=== PATIENT | female | born 1995 | race Two or more races ===

== ENCOUNTER 2019-04-15 15:31 | Emergency (ER) | payer OTHER ==
[2019-04-15 15:49] VITALS: BP 106/69
--- NOTE | 2019-04-16 14:08 | ED ---
Allergic Reaction/Systemic - HPI Summary HPI Summary: This pt is a 24yo F presenting to the ED with feeling dizzy approximately 1 hour [employer]. Pt states she had a brief cough last night, was seen at [facility] and was given mucinex. She also took benadryl following the mucinex. Following this medication, the patient states she felt very dizzy while walking. This was brief, lasting approximately 2-3 minutes and spontaneously improved. She states she has never taken this medication before and thought she was having an allergic reaction. Denies any symptoms currently. Denies visual changes, chest pain, SOB, throat pain, difficulty swallowing or breathing , rashes, CALL, palpitations, abd pain. Denies fevers or current illness. States she feels well at this time. - History of Current Complaint Chief Complaint: EDDizziness Time Seen by Provider: 04/15/19 16:00 Hx Obtained From: Patient, EMS Onset/Duration: Sudden Onset Timing: Constant, Lasting Minutes Severity Initially: Mild Severity Currently: None Pain Intensity: 0 Pain Scale Used: 0-10 Numeric Associated Signs And Symptoms: Positive: Other: - dizziness. Negative: Abdominal Pain, Chest Pain, Cough Wheezing, Diaphoresis, Difficulty Breathing, Hoarseness, Lightheadedness, Nausea, Rash, Syncope, Throat Tightening, Vomiting - Related Hx Possible Reaction To: Medications PMH/Surg Hx/FS Hx/Imm Hx Previously Healthy: Yes - Immunization History Hx Pertussis Vaccination: No Immunizations Up to Date: Yes Infectious Disease History: No Infectious Disease History: Denies: Traveled Outside the [place] in Last 30 Days - Social History Occupation: Unemployed, Student Lives: Dormitory/Roommates Alcohol Use: None Hx Substance Use: No Substance Use Type: Reports: None Hx Tobacco Use: No Smoking Status (MU): Never Smoked Tobacco Review of Systems Negative: Fever, Chills, Fatigue, Skin Diaphoresis Negative: Palpitations, Chest Pain Negative: Shortness Of Breath, Cough Negative: Abdominal Pain, Vomiting, Diarrhea, Nausea Positive: see HPI Negative: Arthralgia, Myalgia Skin: Negative Neurological: Other - dizziness All Other Systems Reviewed And Are Negative: Yes Physical Exam Triage Information Reviewed: Yes Vital Signs On Initial Exam: Initial Vitals Temp Pulse Resp BP Pulse Ox 97.9 F 74 18 106/69 100 04/15/19 15:38 04/15/19 15:38 04/15/19 15:38 04/15/19 15:38 04/15/19 15:38 Vital Signs Reviewed: Yes Appearance: Positive: Well-Appearing, Well-Nourished Skin: Positive: Warm, Skin Color Reflects Adequate Perfusion Head/Face: Positive: Normal Head/Face Inspection Eyes: Positive: EOMI, JANICE, Conjunctiva Clear Neck: Positive: Supple, No Lymphadenopathy Respiratory/Lung Sounds: Positive: Clear to Auscultation, Breath Sounds Present Cardiovascular: Positive: RRR, Pulses are Symmetrical in both Upper and Lower Extremities. Negative: Tachycardia, Leg Edema Left, Leg Edema Right Musculoskeletal: Positive: Normal, Strength/ROM Intact Neurological: Positive: Sensory/Motor Intact, Alert, Oriented to Person Place, Time, CN Intact II-III, Speech Normal Psychiatric: Positive: Normal, Affect/Mood Appropriate AVPU Assessment: Alert Procedures - Sedation Patient Received Moderate/Deep Sedation with Procedure: No Diagnostics - Vital Signs Vital Signs Temp Pulse Resp BP Pulse Ox 04/15/19 16:53 97.9 F 74 18 106/69 100 04/15/19 15:38 97.9 F 74 18 106/69 100 - Laboratory Lab Statement: Any lab studies that have been ordered have been reviewed, and results considered in the medical decision making process. Allergic Reaction Course/Dx - Course Course Of Treatment: Patient appears well. Denies any symptoms. VS stable. Neuro exam WNL. Ambulating well. Pt likely had a reaction to mucinex and benadryl. Pt has no significant PMH. She is discharged in stable condition. - Diagnoses Differential Diagnosis/HQI/PQRI: Positive: Local Allergic Reaction, Other - medication reaction Provider Diagnoses: Dizziness Discharge ED - Sign-Out/Discharge Documenting (check all that apply): Patient Departure - Discharge Plan Condition: Stable Disposition: HOME Patient Education Materials: Dizziness (ED) Referrals: No Primary Care Phys,NOPCP [Primary Care Provider] - Additional Instructions: Discontinue the use of Mucinex Robitussin over the counter only if you develop severe symptoms of cough - Billing Disposition and Condition Condition: STABLE Disposition: Home
== END 2019-04-15 16:45 | disposition home or self-care (01) ==
LOC: ED 15:31
DX: R42 Dizziness and giddiness (principal)
CPT/HCPCS: 99282